=== PATIENT | male | born 1975 ===

== ENCOUNTER 2017-09-26 19:40 | Emergency (ER) | payer SELFPAY ==
[2017-09-26 19:55] VITALS: RESP 16; O2SAT 98
--- NOTE | 2017-09-26 23:00 | ED PDOC ---
HPI: Chest Pain Time Seen by Provider: 09/26/17 21:13 Chief Complaint (Nursing): Chest Pain Chief Complaint (Provider): R sided CP History Per: Patient History/Exam Limitations: no limitations Onset/Duration Of Symptoms: Hrs (7) Current Symptoms Are (Timing): Better Additional Complaint(s): Pt reports R sided CP that started @ 3:30 PM today, constant at first, now intermittent, radiates to R shoulder and to R elbow. Also c/o swelling to RUE that is new. Denies cough, SOB, nausea, vomiting, paresthesias, weakness, trauma. Past Medical History Reviewed: Nursing Documentation, Vital Signs Vital Signs: Last Vital Signs Temp 97.8 F 09/27/17 02:23 Pulse 80 09/27/17 02:23 Resp 16 09/26/17 19:53 BP 147/89 09/27/17 02:23 Pulse Ox 98 09/27/17 04:07 - Medical History PMH: No Chronic Diseases - Surgical History Surgical History: Appendectomy - Family History Family History: States: Unknown Family Hx - Living Arrangements Living Arrangements: With Family - Social History Current smoker - smoking cessation education provided: Yes Alcohol: None Drugs: Cannabis - Allergies Allergies/Adverse Reactions: Allergies Allergy/AdvReac Type Severity Reaction Status Date / Time No Known Allergies Allergy Verified 09/26/17 19:53 RENETTA Risk Score for UA/NSTEMI - RENETTA Risk Score Age > 64: NO 3 or more CAD Risk Factors: NO Known CAD (Stenosis greater than 50%): NO Aspirin use in past 7 days: NO Severe Angina: NO EKG ST changes greater than 0.5mm: NO Positive Cardiac Marker: NO RENETTA Score: 0 Risk %: 5% Review of Systems Constitutional: Negative for: Fever, Chills Cardiovascular: Positive for: Chest Pain. Negative for: Palpitations Respiratory: Negative for: Cough, Shortness of Breath Gastrointestinal: Negative for: Nausea, Vomiting, Abdominal Pain, Diarrhea Genitourinary Male: Negative for: Dysuria, Hematuria Musculoskeletal: Positive for: Arm Pain. Negative for: Neck Pain, Back Pain Skin: Positive for: Rash (Bilateral arms). Negative for: Lesions Neurological: Negative for: Weakness, Numbness, Headache, Dizziness Physical Exam - Reviewed Nursing Documentation Reviewed: Yes Vital Signs Reviewed: Yes - Physical Exam Appears: Positive for: Well, No Acute Distress Head Exam: Positive for: ATRAUMATIC, NORMAL INSPECTION Skin: Positive for: Normal Color, Warm, Dry, Rash (Minimal macular rash anterior bilateral distal UE, no TTP, no induration, no vesicles) Eye Exam: Positive for: Normal appearance, EOMI, PERRL Cardiovascular/Chest: Positive for: Regular Rate, Rhythm. Negative for: Chest Non Tender (TTP R chest wall) Respiratory: Positive for: Normal Breath Sounds. Negative for: Rales, Rhonchi, Wheezing Gastrointestinal/Abdominal: Positive for: Normal Exam, Bowel Sounds, Soft Extremity: Positive for: Normal ROM, Capillary Refill (<2 sec), Swelling (L hand ). Negative for: Tenderness, Deformity Neurologic/Psych: Positive for: Alert, warehouse logistics coordinator II-XII, Oriented. Negative for: Motor/Sensory Deficits - Laboratory Results Result Diagrams: 09/27/17 00:05 09/27/17 00:05 - ECG O2 Sat by Pulse Oximetry: 98 Medical Decision Making Medical Decision Makin yo with R sided CP and RUE edema. - labs - EKG - CXR - RUE Doppler Disposition - Clinical Impression Clinical Impression: Atypical chest pain - Disposition Disposition: Transfer of Care Disposition Time: 00:00 Condition: STABLE Instructions: Chest Pain Forms: [facility] (Spanish) Patient Signed Over To: Ger Alfredo
[2017-09-27 00:10] LABS: BASO # 0.1 K/uL (0.0-0.2); BASO % 0.9 % (0.0-2.0); EOS # 0.1 K/uL (0.0-0.7); HEMOGLOBIN 15.7 g/dL (12.0-18.0); LYMPH # 3.1 K/uL (1.0-4.3); MEAN CELL VOLUME 95.4 fl (80.0-94.0); MEAN CORPUSCULAR HEMOGLOBIN 32.6 pg (27.0-31.0); MEAN CORPUSCULAR HGB CONC 34.2 g/dL (33.0-37.0); MONO # 1.1 K/uL (0.0-0.8); MONO % 7.6 % (0.0-10.0); NEUT # 10.1 K/uL (1.8-7.0); NEUT % 69.5 % (50.0-75.0); NRBC % 0.1 % (0.0-0.0); RBC 4.82 Mil/uL (4.40-5.90); RED CELL DISTRIBUTION WIDTH 13.8 % (11.5-14.5); WHITE BLOOD COUNT 14.6 K/uL (4.8-10.8)
[2017-09-27 00:20] LABS: ALB/GLOB RATIO 1.5 (1.0-2.1); ALBUMIN 4.7 g/dL (3.5-5.0); ALT/SGPT 46 U/L (21-72); AST/SGOT 28 U/L (17-59); BLOOD UREA NITROGEN 13 mg/dl (9-20); CALCIUM 9.3 mg/dL (8.4-10.2); GFR AFRICAN-AMERICAN > 60; GFR NON-AFRICAN AMERICAN > 60
--- NOTE | 2017-09-27 00:48 | ED PDOC ---
- Laboratory Results Result Diagrams: 09/27/17 00:05 09/27/17 00:05 - ECG O2 Sat by Pulse Oximetry: 98 Medical Decision Making Medical Decision Makin Patient signed out to me from Dr. Rai pending CXR, US, and labs. 5830 US FINDINGS: Deep veins: Unremarkable. No DVT in the internal jugular, subclavian, axillary, or brachial veins. The veins demonstrate normal color flow, are normally compressible, with normal phasic flow and/or augmentation response. Superficial veins: Unremarkable. No thrombus in the visualized basilic and cephalic veins. Soft tissues: No acute findings. IMPRESSION: Normal right upper extremity duplex venous ultrasound. 0215 Labs reviewed: no clinically significant abnormalities. Patient is stable for discharge home. Return precautions given. Dx: atypical chest pain Condition: stable Scribe Attestation: Documented by Cleo Argueta acting as a scribe for Ger Alfredo MD. Scribe Attestation: All medical record entries made by the Scribe were at my direction and personally dictated by me. I have reviewed the chart and agree that the record accurately reflects my personal performance of the history, physical exam, medical decision making, and the department course for this patient. I have also personally directed, reviewed, and agree with the discharge instructions and disposition. Disposition - Clinical Impression Clinical Impression: Atypical chest pain - POA Present On Arrival: None - Disposition Disposition: Routine/Home Disposition Time: 02:15 Condition: STABLE Instructions: Chest Pain Forms: [facility] (Bel[place]ian)
[2017-09-27 01:24] LABS: PARTIAL THROMBOPLASTIN TIME 32.6 Seconds (25.6-37.1); PROTHROMBIN TIME 11.1 Seconds (9.8-13.1)
[2017-09-27 02:25] VITALS: BP 147/89; PULSE 80; TEMP 97.8
--- NOTE | 2017-09-27 08:40 | US ---
PROCEDURE: Right Upper Extremity Venous Doppler HISTORY: RUE edema COMPARISON: None available. TECHNIQUE: Right upper extremity deep veins, including the lower internal jugular, subclavian, axillary and brachial veins, were evaluated flow, compressibility and respiratory phasicity. The basilic, cephalic, radial and ulnar veins were also evaluated. FINDINGS: Normal flow, compressibility and respiratory phasicity was observed in the right upper extremity deep veins. IMPRESSION: No evidence of deep venous thrombosis.
--- NOTE | 2017-09-27 09:22 | RAD ---
HISTORY: R sided CP COMPARISON: No prior. TECHNIQUE: Chest PA and lateral FINDINGS: LUNGS: No active pulmonary disease. PLEURA: No significant pleural effusion identified. No pneumothorax apparent. CARDIOVASCULAR: Normal. OSSEOUS STRUCTURES: No significant abnormalities. VISUALIZED UPPER ABDOMEN: Normal. OTHER FINDINGS: None. IMPRESSION: No active disease.
--- NOTE | 2017-09-27 19:09 | CARD ---
APPROVED REPORT EKG Measurement Heart [id number] <Conclusion> Normal sinus rhythm Normal ECG
== END 2017-09-27 02:25 | disposition home or self-care (01) ==
LOC: H.ER 19:40
DX: R07.89 Other chest pain (principal); F17.200 Nicotine dependence, unspecified, uncomplicated